=== PATIENT | male | born 1940 | race Caucasian/White ===

== ENCOUNTER → 2020-03-30 | Outpatient (CLI) | payer MEDICARE, BC ==
[~2020-03-30] MED LIST: ADVIL200 MG PO; ANTIBIOTIC UNKNOWN; ARICEPT10 MG PO; ASPIRIN 32325 MG/TA1 PO; ASPIRIN 32325 MG/TAB PO; CENTRUM SILVER1 TAB PO; CEPHALEXIN500 M1 PO; CIPRO 500MG TA500 MG PO; CITRACAL + D CA1 TAB PO; CLEOCIN HCL300 MG PO; COLACE 100100 MG/CAP PO; DOXYCYCLINE 10100 MG PO; DYNAPEN PO; ENALAPRIL5 MG PO; FERROUS SU325 MG/TAB PO; GLIPIZIDE2.5 MG PO; GLIPIZIDE5 MG PO; GLUCOPHAGE PO; GLUCOPHAGE1000 MG PO; GLUCOPHAGE500 MG/TAB PO; IRON TABLETS325 MG PO; JANUVIA 100MG100 MG PO; LANTUS SOLOS100 U/ML SQ; LANTUS100 U/ML; LANTUS100 U/ML SQ; LEVAQUIN 5500 MG/TA1 PO; LEVEMIR FLEX100 U/ML SQ; LEVOTHYROXIN0.075 MG PO; LOPRESSOR 225 MG/TAB PO; LOPRESSOR50 MG PO; MINOCYCLIN100 MG/CAP PO; MOTRIN 200200 MG/TAB PO; MULTIPLE VITAMI1 CAP PO; NITROSTAT0.4 MG/TAB SL; NORCO 325 MG-51 TAB PO; NORCO 325 MG-7.1 TAB PO; NOVLOG SQ; PHENERGAN 25 TA25 MG PO; PLAVIX 75MG TAB75 MG PO; PRINIVIL2.5 MG PO; ROXICODONE 55 MG/TAB PO; SYNTHROID0.088 MG/T PO; SYNTHROID0.1 MG/TAB PO; TOPROL XL 25MG25 MG PO; TYLENOL 325MG325 MG PO; VASOTEC 10M10 MG/TAB PO; VASOTEC 2.2.5 MG/TAB PO; VICTOZA; VITAMIND3 5000 PO; ZOCOR 20MG20 MG PO; ZOCOR20 MG PO; ZOLOFT 100MG100 MG PO; ZOLOFT 50MG50 MG PO
== END ==
LOC: COL.LAB 21:22
DX: E13.621 Other specified diabetes mellitus with foot ulcer (principal)

== ENCOUNTER → 2020-06-15 | Outpatient (CLI) | payer MEDICARE, BC | LOC: ZCOL.LAB 18:10 | DX: E13.621 Other specified diabetes mellitus with foot ulcer (principal) ==

== ENCOUNTER 2020-09-21 16:25 | Emergency (ER) | payer MEDICARE, BC ==
[~2020-09-21] VITALS: Ht 180.3 cm; Wt 58.6 kg
[2020-09-21 16:34] VITALS: TEMP 98.3
[2020-09-21 17:09] LABS: BASO % 0.4 % (0.0-2.0); EOS # 0.2 (0.0-0.7); EOS % 3.7 % (0-4.0); GRAN # 3.4 (1.4-6.5); GRAN % 69.9 % (42.2-75.2); HEMOGLOBIN 10.9 g/dl (13.5-18.0); LYMPH # 0.7 (1.2-3.4); LYMPH % 15.3 % (20.0-51.0); MEAN CELL VOLUME 87 fl (80.0-100.0); MEAN CORPUSCULAR HEMOGLOBIN 30 pg (27.0-31.0); MEAN CORPUSCULAR HGB CONC 34 g/dl (33.0-37.0); MEAN PLATELET VOLUME 10.1 fl (7.4-10.4); MONO # 0.5 (0.1-0.6); MONO % 10.3 % (1.7-9.3); PLATELET COUNT 283 K/mm3 (130-400); RED BLOOD COUNT 3.64 M/mm3 (4.20-5.60); REDCELL DISTRIBUTION WIDTH-CV 12.7 % (11.5-14.5)
[2020-09-21 17:16] LABS: HEMATOCRIT 31.8 % (42.0-52.0)
[2020-09-21 17:27] LABS: ALANINE AMINOTRANSFERASE 18 U/L (4-49); ALBUMIN 3.6 gm/dL (3.5-5.0); ALKALINE PHOSPHATASE 144 U/L (50-136); ANION GAP 4 mmol/L (7-16); AST,SGOT 24 U/L (15-37); BILIRUBIN,TOTAL 0.4 mg/dL (0.0-1.0); BLOOD UREA NITROGEN 25 mg/dL (9-20); CALCIUM 8.8 mg/dL (8.4-10.2); CARBON DIOXIDE 30 mmol/L (22-30); CHLORIDE 97 mmol/L (98-107); CREATININE, serum 0.75 (0.66-1.25); SODIUM 131 mmol/L (137-145); TOTAL PROTEIN 6.9 gm/dL (6.4-8.2)
[2020-09-21 17:31] LABS: ACETONE,SERUM NEGATIVE; GLUCOSE 502 mg/dL (74-106)
[2020-09-21 18:39] LABS: COLLECTION METHOD CLEAN CATCH
[2020-09-21] MEDS ORDERED: LANTUS SOLOS100 U/ML SQ ×2 (18:44)
[2020-09-21 18:46] LABS: PH 5 (5-8); SQUAMOUS EPITHELIAL None Seen /hpf; URINE APPEARANCE Clear; URINE BACTERIA None Seen /hpf; URINE BILIRUBIN Negative (NEGATIVE); URINE BLOOD 1+ (NEGATIVE); URINE COLOR Yellow; URINE GLUCOSE 3+ (NEGATIVE); URINE KETONE Negative (NEGATIVE); URINE LEUKOCYTE ESTERASE Negative (NEGATIVE); URINE NITRATE Negative (NEGATIVE); URINE PROTEIN(semi-quant) 2+ (NEGATIVE); URINE UROBILINOGEN Negative (NEGATIVE); URINE WBC 0-2 /hpf
[2020-09-21 18:57] VITALS: BP 132/54; PULSE 58
== END 2020-09-21 19:06 | disposition home or self-care (01) ==
LOC: COL.ER 16:25
PROVIDERS: Nurse Practitioner Primary Care
DX: L03.115 Cellulitis of right lower limb (principal); E11.65 Type 2 diabetes mellitus with hyperglycemia; I25.10 Atherosclerotic heart disease of native coronary artery without angina pectoris; E11.51 Type 2 diabetes mellitus with diabetic peripheral angiopathy without gangrene; E78.5 Hyperlipidemia, unspecified; E03.9 Hypothyroidism, unspecified; Z79.4 Long term (current) use of insulin; Z79.899 Other long term (current) drug therapy; Z79.890 Hormone replacement therapy; Z79.82 Long term (current) use of aspirin
CPT/HCPCS: J1815; J7030

== ENCOUNTER → 2020-09-21 | Outpatient (CLI) | payer MEDICARE, BC | LOC: ZCOL.LAB 16:10 | DX: B99.9 Unspecified infectious disease (principal) ==